=== PATIENT | female | born 1970 | race African-American/Black ===

== ENCOUNTER 2022-11-16 13:52 | Emergency (ER) | payer OTHER ==
[2022-11-16 14:04] VITALS: BP 150/90; PULSE 100; RESP 18; TEMP 98.6; BMI 27.4
== END 2022-11-16 16:56 | disposition home or self-care (01) ==
LOC: JERFT 13:52 → JER 13:52 → JERFT 16:56
DX: R05.3 Chronic cough (principal); R07.9 Chest pain, unspecified; R07.0 Pain in throat
CPT/HCPCS: 71046-TC-FY; 99283-25